=== PATIENT | female | born 1975 | race Asian ===

== ENCOUNTER 2017-08-04 12:28 | Emergency (ER) | payer SELFPAY ==
--- NOTE | 2017-08-04 14:20 | ER Document Report ---
ED General - General Mode of Arrival: Ambulatory Information source: Patient TRAVEL OUTSIDE OF THE [place] IN LAST 30 DAYS: No - General Chief Complaint: Toothache Stated Complaint: TOOTH/STOMACH PAIN Time Seen by Provider: 08/04/17 14:13 Notes: Patient is a 42-year-old female complaining of mouth pain and right-sided facial pain. Patient states that she has recently chipped one of her right lower molars and believes this is causing her facial pain. Patient states that she has taken Ibuprofen and Tylenol in attempt to alleviate her pain. (TERI MAURICIO) Past Medical History - General Information source: Patient - Social History Smoking Status: Current Every Day Smoker Cigarette use (# per day): Yes - 1 pack a day Frequency of alcohol use: Rare Drug Abuse: None Family History: Reviewed & Not Pertinent Past Surgical History: Reports: Hx Tubal Ligation - Immunizations Hx Diphtheria, Pertussis, Tetanus Vaccination: Yes Review of Systems - Review of Systems Constitutional: No symptoms reported EENT: See HPI, Mouth pain Cardiovascular: No symptoms reported Respiratory: No symptoms reported Gastrointestinal: No symptoms reported Genitourinary: No symptoms reported Female Genitourinary: No symptoms reported Musculoskeletal: See HPI Skin: No symptoms reported Hematologic/Lymphatic: No symptoms reported Neurological/Psychological: No symptoms reported -: Yes All other systems reviewed and negative Physical Exam - General General appearance: Appears well, Alert In distress: None - HEENT Head: Normocephalic, Atraumatic Eyes: Normal Conjunctiva: Normal Extraocular movements intact: Yes Pupils: PERRL Mouth/Lips: Normal, Dental fracture - right lower 2nd molar, medial posterior corner which is tender to palpation. right lower 3rd molar is also tender to palpation, Other - no gum swelling Mucous membranes: Normal Neck: Normal - Respiratory Respiratory status: No respiratory distress Chest status: Nontender Breath sounds: Normal Chest palpation: Normal - Cardiovascular Rhythm: Regular Heart sounds: Normal auscultation Murmur: No Friction rub: No Gallop: None auscultated - Extremities General upper extremity: Normal ROM General lower extremity: Normal ROM - Neurological Neuro grossly intact: Yes Cognition: Normal Orientation: AAOx4 Jose Coma Scale Eye Opening: Spontaneous Hackett Coma Scale Verbal: Oriented Jose Coma Scale Motor: Obeys Commands Jose Coma Scale Total: 15 Speech: Normal - Psychological Associated symptoms: Normal affect, Normal mood - Skin Skin Temperature: Warm Skin Moisture: Dry Skin Color: Normal - Vital signs Vitals: Temp Pulse Resp BP Pulse Ox 98.1 F 77 16 120/70 97 08/04/17 12:39 08/04/17 12:39 08/04/17 12:39 08/04/17 12:39 08/04/17 12:39 - Vital Signs Vital signs: Temp Pulse Resp BP Pulse Ox 98 F 75 16 117/68 98 08/04/17 14:25 08/04/17 14:25 08/04/17 14:25 08/04/17 14:25 08/04/17 14:25 Discharge - Discharge Clinical Impression: Pain due to dental caries Condition: Stable Disposition: HOME, SELF-CARE Instructions: Dentist Additional Instructions: Toothache Your pain is due to dental decay. The tooth must be repaired in order for you to feel better. You will, therefore, be referred to a dentist. Severe swelling or drainage around a tooth usually means a deep dental abscess. This also requires evaluation and treatment by the dentist, but antibiotics may be prescribed while awaiting dental treatment. You should be rechecked immediately if you develop major swelling of the face, increasing pain, a lump in the jaw or gums, headache, or fever. Take the medications as prescribed. Use warm soaks to the painful jaw area. Follow-up with a dentist this week for treatment of your broken tooth. RETURN TO THE EMERGENCY ROOM IF ANY NEW OR WORSENING SYMPTOMS. Prescriptions: Hydrocodone/Acetaminophen [Hydrocodon-Acetaminophen 5-325] 1 each PO Q4 PRN #15 tablet PRN Reason: For Pain Penicillin V Potassium [Penicillin Vk 500 mg Tablet] 500 mg PO QID #28 tablet Scribe Attestation: 08/04/17 18:35 I personally performed the services described in the documentation, reviewed and edited the documentation which was dictated to the scribe in my presence, and it accurately records my words and actions. (CHIKA WOO) Scribe Documentation - Scribe Written by Quinten:: Quinten Blanton, 08/04/2017 14:32 acting as scribe for :: Quentin
[2017-08-04 14:49] VITALS: BP 117/68
== END 2017-08-04 14:30 | disposition home or self-care (01) ==
LOC: ER 12:28
DX: K02.9 Dental caries, unspecified (principal); K08.89 Other specified disorders of teeth and supporting structures; F17.210 Nicotine dependence, cigarettes, uncomplicated
CPT/HCPCS: 99282